=== PATIENT | female | born 1965 | race Asian ===

== ENCOUNTER 2018-04-06 18:00 | Inpatient (IN) | payer MEDICAID ==
[2018-04-06] MEDS ORDERED: HYDROmorphONE 1 MG/ML SYG IV (18:10)
[2018-04-06] MEDS: ONDANSETRON 4 MG INJ IV (18:17)
[2018-04-06] MEDS: HYDROmorphONE 0.5 MG/0.5 ML SYG IV ×4 (18:22→20:59)
[2018-04-06] MEDS ORDERED: HYDROmorphONE 1 MG/ML SYG (18:40)
[2018-04-06 18:41] LABS: ADD MAN DIFF? NO
[2018-04-06 18:44] LABS: BASOPHILS % 0.2 % (0.0-2.0); EOSINOPHILS % 0.3 % (0.0-7.0); HEMATOCRIT 38.6 % (37.0-47.0); HEMOGLOBIN 13.2 g/dl (12.0-16.0); LYMPHOCYTES # 1.2 10^3/ul (0.8-2.9); LYMPHOCYTES % 13.2 % (15.0-51.0); MEAN CORPUSCULAR HEMOGLOBIN 34.6 pg (29.0-33.0); MEAN CORPUSCULAR HGB CONC 34.2 g/dl (32.0-37.0); MEAN PLATELET VOLUME 8.8 fl (7.4-10.4); MONOCYTE # 0.3 10^3/ul (0.3-0.9); MONOCYTES % 2.8 % (0.0-11.0); NEUTROPHIL # 7.8 10^3/ul (1.6-7.5); NEUTROPHILS % 83.4 % (39.0-77.0); PLATELET COUNT 247 10^3/UL (140-415); RED BLOOD COUNT 3.82 10^6/ul (4.20-5.40)
[2018-04-06 18:44] LABS: WHITE BLOOD COUNT 9.3 10^3/ul (4.8-10.8)
[2018-04-06 19:00] LABS: ALANINE AMINOTRANSFERASE 16 IU/L (13-69); ALBUMIN 4.7 g/dl (3.3-4.9); ALBUMIN/GLOBULIN RATIO 1.46; ALKALINE PHOSPHATASE 95 IU/L (42-121); ANION GAP 17 (8-16); ASPARTATE AMINO TRANSFERASE 26 IU/L (15-46); BILIRUBIN,INDIRECT 0.3 mg/dl (0-1.1); BILIRUBIN,TOTAL 0.3 mg/dl (0.2-1.3); BLOOD UREA NITROGEN 4 mg/dl (7-20); CALCIUM 9.4 mg/dl (8.4-10.2); CARBON DIOXIDE 26 mmol/L (21-31); CHLORIDE 102 mmol/L (97-110); CREATININE 0.66 mg/dl (0.44-1.00); GLUCOSE 121 mg/dl (70-220); LIPASE 80 U/L (23-300); POTASSIUM 3.2 mmol/L (3.5-5.1); SODIUM 142 mmol/L (135-144); TOTAL PROTEIN 7.9 g/dl (6.1-8.1)
[2018-04-06 19:09] LABS: URINE PH (Dip) POC 7.5 (5.0-8.5)
[2018-04-06 19:09] LABS: URINE BLOOD (Dip) POC Negative (NEGATIVE); URINE GLUCOSE (Dip) POC Negative (NEGATIVE); URINE KETONES (Dip) POC Trace (NEGATIVE); URINE LEUKOCYTE EST (Dip) POC Trace (NEGATIVE); URINE NITRITE (Dip) POC Negative (NEGATIVE); URINE TOTAL PROTEIN POC Negative (NEGATIVE)
[2018-04-06] MEDS: PIPER-TAZO 3.375 GM IV (PMX) 100 ML IVPB (19:50)
[2018-04-06] MEDS: POTASSIUM CHLORIDE 100 ML IVPB (19:53)
[2018-04-06] MEDS: SOD CHLORIDE 0.9% 0 ML (20:05)
[2018-04-06] MEDS: IOHEXOL 100 ML (20:06)
[2018-04-06 21:29] LABS: LACTIC ACID 2.5 mmol/L (0.5-2.0)
[2018-04-07] MEDS: DEXTROSE 5%-0.45% NACL 1,000 ML IV ×2 (00:34→11:47)
[2018-04-07] MEDS: POTASSIUM CHLORIDE 100 ML IVPB (01:21)
[2018-04-07 05:12] LABS: ADD MAN DIFF? NO
[2018-04-07 05:16] LABS: WHITE BLOOD COUNT 9.8 10^3/ul (4.8-10.8)
[2018-04-07 05:16] LABS: BASOPHILS % 0.2 % (0.0-2.0); EOSINOPHILS % 0.1 % (0.0-7.0); HEMATOCRIT 44.3 % (37.0-47.0); LYMPHOCYTES # 1.2 10^3/ul (0.8-2.9); LYMPHOCYTES % 12.1 % (15.0-51.0); MEAN CORPUSCULAR HEMOGLOBIN 34.1 pg (29.0-33.0); MEAN CORPUSCULAR HGB CONC 33.9 g/dl (32.0-37.0); MEAN CORPUSCULAR VOLUME 100.7 fl (82.0-101.0); MEAN PLATELET VOLUME 8.8 fl (7.4-10.4); MONOCYTE # 0.5 10^3/ul (0.3-0.9); NEUTROPHIL # 8.1 10^3/ul (1.6-7.5); NEUTROPHILS % 82.3 % (39.0-77.0); PLATELET COUNT 258 10^3/UL (140-415); RED CELL DISTRIBUTION WIDTH 11.9 % (11.5-14.5)
[2018-04-07 05:53] LABS: ALANINE AMINOTRANSFERASE 13 IU/L (13-69); ALBUMIN 4.3 g/dl (3.3-4.9); ALKALINE PHOSPHATASE 82 IU/L (42-121); ANION GAP 15 (8-16); ASPARTATE AMINO TRANSFERASE 22 IU/L (15-46); BILIRUBIN,INDIRECT 0.5 mg/dl (0-1.1); BILIRUBIN,TOTAL 0.5 mg/dl (0.2-1.3); BLOOD UREA NITROGEN 5 mg/dl (7-20); CALCIUM 9.3 mg/dl (8.4-10.2); CARBON DIOXIDE 26 mmol/L (21-31); CHLORIDE 105 mmol/L (97-110); CREATININE 0.67 mg/dl (0.44-1.00); GLUCOSE 114 mg/dl (70-220); PHOSPHORUS 3.5 mg/dl (2.5-4.9); POTASSIUM 4.7 mmol/L (3.5-5.1); SODIUM 141 mmol/L (135-144); TOTAL PROTEIN 7.6 g/dl (6.1-8.1)
[2018-04-07] MEDS: HEPARIN 5,000 UNIT/0.5 ML VIAL SC ×2 (06:52→14:00)
[2018-04-07] MEDS: PIPER-TAZO 3.375 GM IV (PMX) 100 ML IVPB ×3 (06:53→18:00)
[2018-04-07] MEDS ORDERED: ACETAMINOPHEN 1000 MG/100 ML IVPB (07:00)
[2018-04-07] MEDS ORDERED: SUCCINYLCHOLINE CHLORIDE 100 MG/5 ML SYG IV (07:00)
[2018-04-07] MEDS ORDERED: PROPOFOL 200 MG INJ (07:00)
[2018-04-07] MEDS ORDERED: ROCURONIUM 50 MG INJ (07:00)
[2018-04-07] MEDS ORDERED: LIDOCAINE 2% (SDV) 5 ML INJ (07:00)
[2018-04-07 08:12] LABS: INR 0.86; PROTIME 11.8 Sec (11.9-14.9); PT RATIO 0.9
[2018-04-07] MEDS: IOHEXOL 14.3 MG(I)/ML (ADULT) BTL PO (08:30)
[2018-04-07] MEDS: ONDANSETRON 4 MG INJ IV (09:37)
[2018-04-07] MEDS: morphine 2 MG INJ IV ×2 (09:45→14:21)
[2018-04-07] MEDS ORDERED: ONDANSETRON 4 MG INJ IV ×2 (16:30→19:30)
[2018-04-07] MEDS ORDERED: ACETAMINOPHEN 650 MG SUPP PR (16:30)
[2018-04-07] MEDS ORDERED: HYDROmorphONE 1 MG/ML SYG IV (16:30)
[2018-04-07] MEDS: FAMOTIDINE 20 MG INJ IV (16:30)
[2018-04-07] MEDS ORDERED: NICOTINE (14 MG/24 HR) PATCH TRANSDERM (17:30)
[2018-04-07] MEDS ORDERED: PHENYLephrine (100 MCG/ML) 5ML SYG (18:20)
[2018-04-07] MEDS: BUPIVACAINE 0.5%/EPI (SDV) 30 ML INJ (18:47)
[2018-04-07] MEDS ORDERED: DEXAMETHASONE 4 MG/ML 1 ML INJ (18:49)
[2018-04-07] MEDS ORDERED: ONDANSETRON 4 MG INJ (18:50)
[2018-04-07] MEDS ORDERED: ROPIVACAINE 0.5 % 30 ML VIAL (18:56)
[2018-04-07] MEDS ORDERED: SUGAMMADEX SODIUM 200 MG/2 ML VIAL IV (19:09)
[2018-04-07] MEDS ORDERED: FENTAnyl 50 MCG/ML VIAL IV ×3 (19:30)
[2018-04-07] MEDS ORDERED: EPHEDrine SULFATE 50 MG/5 ML SYG IV (19:30)
[2018-04-07] MEDS ORDERED: MEPERIDINE 25 MG INJ IV (19:30)
[2018-04-07] MEDS ORDERED: hydrALAzine 20 MG INJ IV (19:30)
[2018-04-07] MEDS ORDERED: HYDROmorphONE 1 MG/5 ML IV SYRINGE IV ×2 (19:30)
[2018-04-07] MEDS ORDERED: LABETALOL HCL 20MG INJ IV (19:30)
[2018-04-07] MEDS ORDERED: MIDAZOLAM 1 MG/ML 2 ML INJ IV (19:30)
[2018-04-07] MEDS ORDERED: KETOROLAC 30 MG INJ IV (19:30)
[2018-04-07] MEDS ORDERED: METOCLOPRAMIDE 10 MG INJ IV (19:30)
[2018-04-07] MEDS ORDERED: ALBUTEROL 0.083% (NEB) 2.5 MG/3 ML AMP HHN (19:30)
[2018-04-07] MEDS: HYDROmorphONE 1 MG/5 ML IV SYRINGE IV (19:46)
[2018-04-07] MEDS: DIPHENHYDRAMINE 50 MG INJ IV (19:47)
[2018-04-07] MEDS: KETOROLAC 15 MG INJ IV (21:47)
[2018-04-07] MEDS: D5-NS + KCL 20 MEQ 1,000 ML IV (21:48)
[2018-04-08] MEDS: PIPER-TAZO 3.375 GM IV (PMX) 100 ML IVPB ×4 (00:26→17:56)
[2018-04-08] MEDS: KETOROLAC 15 MG INJ IV ×5 (03:54→21:11)
[2018-04-08] MEDS: D5-NS + KCL 20 MEQ 1,000 ML IV ×3 (05:03→22:25)
[2018-04-08] MEDS: PANTOPRAZOLE 40 MG INJ IV (06:16)
[2018-04-08] MEDS: ENOXAPARIN 40 MG/0.4 ML SYG SC (06:17)
[2018-04-08] MEDS: ONDANSETRON 4 MG INJ IV (07:34)
[2018-04-08] MEDS: morphine 2 MG INJ IV (07:54)
[2018-04-08 09:37] LABS: ADD MAN DIFF? NO; HAAIG REFLEX REFLEX FILED
[2018-04-08 09:41] LABS: BASOPHILS % 0.1 % (0.0-2.0); HEMATOCRIT 37.3 % (37.0-47.0); HEMOGLOBIN 12.9 g/dl (12.0-16.0); LYMPHOCYTES # 1.6 10^3/ul (0.8-2.9); LYMPHOCYTES % 10.3 % (15.0-51.0); MEAN CORPUSCULAR HEMOGLOBIN 34.2 pg (29.0-33.0); MEAN CORPUSCULAR HGB CONC 34.6 g/dl (32.0-37.0); MEAN CORPUSCULAR VOLUME 98.9 fl (82.0-101.0); MEAN PLATELET VOLUME 8.9 fl (7.4-10.4); MONOCYTE # 1.2 10^3/ul (0.3-0.9); MONOCYTES % 7.7 % (0.0-11.0); NEUTROPHIL # 12.3 10^3/ul (1.6-7.5); NEUTROPHILS % 81.2 % (39.0-77.0); PLATELET COUNT 238 10^3/UL (140-415); RED BLOOD COUNT 3.77 10^6/ul (4.20-5.40); RED CELL DISTRIBUTION WIDTH 11.9 % (11.5-14.5)
[2018-04-08 09:41] LABS: WHITE BLOOD COUNT 15.1 10^3/ul (4.8-10.8)
[2018-04-08 09:58] LABS: LACTIC ACID 1.2 mmol/L (0.5-2.0)
[2018-04-08 10:02] LABS: INR 1.05; PROTIME 13.8 Sec (11.9-14.9); PT RATIO 1.1
[2018-04-08 10:24] LABS: ALANINE AMINOTRANSFERASE 17 IU/L (13-69); ALBUMIN 3.3 g/dl (3.3-4.9); ALBUMIN/GLOBULIN RATIO 1.13; ALKALINE PHOSPHATASE 58 IU/L (42-121); ANION GAP 12 (8-16); ASPARTATE AMINO TRANSFERASE 21 IU/L (15-46); BILIRUBIN,INDIRECT 0.7 mg/dl (0-1.1); BILIRUBIN,TOTAL 0.7 mg/dl (0.2-1.3); BLOOD UREA NITROGEN 10 mg/dl (7-20); CALCIUM 8.7 mg/dl (8.4-10.2); CARBON DIOXIDE 23 mmol/L (21-31); CHLORIDE 110 mmol/L (97-110); CREATININE 0.67 mg/dl (0.44-1.00); GLUCOSE 127 mg/dl (70-220); SODIUM 141 mmol/L (135-144); TOTAL PROTEIN 6.2 g/dl (6.1-8.1)
[2018-04-08 11:25] LABS: HEMOGLOBIN A1C 5.2 % (0-5.9)
[2018-04-08 11:32] LABS: HEPATITIS B SURFACE ANTIGEN POSITIVE (NEGATIVE)
[2018-04-08 11:34] LABS: THYROID STIMULATING HORMONE 0.633 MIU/L (0.465-4.680)
[2018-04-08 16:49] LABS: HEPATITIS B CORE ANTIBODY REACTIVE (NEGATIVE); HEPATITIS C VIRAL ANTIBODY NEGATIVE (NEGATIVE)
[2018-04-09] MEDS: PIPER-TAZO 3.375 GM IV (PMX) 100 ML IVPB ×4 (00:37→17:12)
[2018-04-09] MEDS: KETOROLAC 15 MG INJ IV ×2 (01:56→15:20)
[2018-04-09] MEDS: PANTOPRAZOLE 40 MG INJ IV (05:21)
[2018-04-09] MEDS: morphine 2 MG INJ IV (05:21)
[2018-04-09 05:53] LABS: ADD MAN DIFF? NO
[2018-04-09 06:03] LABS: WHITE BLOOD COUNT 12.4 10^3/ul (4.8-10.8)
[2018-04-09 06:03] LABS: BASOPHILS % 0.2 % (0.0-2.0); EOSINOPHILS # 0.1 10^3/ul (0.0-0.5); EOSINOPHILS % 0.6 % (0.0-7.0); HEMATOCRIT 35.8 % (37.0-47.0); HEMOGLOBIN 12.1 g/dl (12.0-16.0); LYMPHOCYTES % 24.5 % (15.0-51.0); MEAN CORPUSCULAR HEMOGLOBIN 34.7 pg (29.0-33.0); MEAN CORPUSCULAR HGB CONC 33.8 g/dl (32.0-37.0); MEAN CORPUSCULAR VOLUME 102.6 fl (82.0-101.0); MONOCYTE # 0.8 10^3/ul (0.3-0.9); MONOCYTES % 6.3 % (0.0-11.0); NEUTROPHIL # 8.4 10^3/ul (1.6-7.5); NEUTROPHILS % 68.1 % (39.0-77.0); PLATELET COUNT 216 10^3/UL (140-415); RED BLOOD COUNT 3.49 10^6/ul (4.20-5.40); RED CELL DISTRIBUTION WIDTH 12.1 % (11.5-14.5)
[2018-04-09] MEDS: ENOXAPARIN 40 MG/0.4 ML SYG SC (06:23)
[2018-04-09 06:25] LABS: ALANINE AMINOTRANSFERASE 19 IU/L (13-69); ALBUMIN 3.2 g/dl (3.3-4.9); ALBUMIN/GLOBULIN RATIO 1.23; ALKALINE PHOSPHATASE 50 IU/L (42-121); ANION GAP 12 (8-16); ASPARTATE AMINO TRANSFERASE 21 IU/L (15-46); BILIRUBIN,INDIRECT 0.4 mg/dl (0-1.1); BILIRUBIN,TOTAL 0.4 mg/dl (0.2-1.3); BLOOD UREA NITROGEN 7 mg/dl (7-20); CALCIUM 8.4 mg/dl (8.4-10.2); CARBON DIOXIDE 26 mmol/L (21-31); CHLORIDE 109 mmol/L (97-110); GLUCOSE 96 mg/dl (70-220); MAGNESIUM 2.2 mg/dl (1.7-2.5); PHOSPHORUS 2.4 mg/dl (2.5-4.9); POTASSIUM 3.7 mmol/L (3.5-5.1); SODIUM 143 mmol/L (135-144); TOTAL PROTEIN 5.8 g/dl (6.1-8.1)
[2018-04-09] MEDS: D5-NS + KCL 20 MEQ 1,000 ML IV (09:35)
[2018-04-09] MEDS: PANTOPRAZOLE (EC) 40 MG TAB PO (15:18)
== END 2018-04-09 20:35 | disposition home or self-care (01) | DRG 329 ==
LOC: MS1 22:51 → E/R 18:00 → MS1 20:51
PROC: 0DS Gastrointestinal System, Reposition (ICD-10-PCS; principal; 2018-04-07 18:25)
DX: K55.019 Acute (reversible) ischemia of small intestine, extent unspecified (principal); K56.2 Volvulus; R11.2 Nausea with vomiting, unspecified; R53.83 Other fatigue; F17.210 Nicotine dependence, cigarettes, uncomplicated
CPT/HCPCS: 36415; 71045; 74018; 74176; 74177; 75635; 80053; 81003; 82306; 83036; 83605; 83690; 83735; 84100; 84443; 84703; 85025; 85610; 85730; 86704; 86709; 86803; 87340; 93005; 96365; 96375; 96376; 99285-25